=== PATIENT | female | born 1980 | race Caucasian/White ===

== ENCOUNTER 2017-07-15 23:22 | Emergency (ER) | payer MEDICAID ==
[~2017-07-15] VITALS: Ht 165.1 cm; Wt 79.4 kg
[2017-07-15 23:27] VITALS: BP 114/75
--- NOTE | 2017-07-15 23:31 | NUR ---
TO LOBBY ALANNA VSS, A/W BED, DEBI NOTED
--- NOTE | 2017-07-16 00:27 | NUR ---
PT TO ER BED 8
--- NOTE | 2017-07-16 00:30 | NUR ---
PATIENT IS A 36 Y/O FEMALE WHO PRESENTS TO THE ED C/O HAND PAIN. PT STATES THAT SHE FELL DOWN AND HURT HER ARM. PT REPORTS 7/10 ACHING R HAND PAIN THAT DOES NOT RADIATE, NOTED MILD SWELLING. CMS INTACT. PT DENIES CP, SOB, N/V/D. PT AAOX4, RR EVEN/UNLABORED. PT REPOSITIONED FOR COMFORT, BED IN LOWEST POSITION. ER MD DR. GRANADOS NOTIFIED. WILL CONTINUE TO MONITOR.
[2017-07-16] MEDS ORDERED: IBUPROFEN 600 MG TAB PO ONE (00:45)
[2017-07-16 02:47] VITALS: BP 114/75
--- NOTE | 2017-07-16 02:47 | NUR ---
Patient discharged with v/s stable, reduced pain, CMS intact. Written and verbal after care instructions given and explained. Patient alert, oriented and verbalized understanding of instructions. Ambulatory with steady gait. All questions addressed prior to discharge. ID band removed. Patient advised to follow up with PMD. Rx of ibuprofen, norco given. Patient educated on indication of medication including possible reaction and side effects. Opportunity to ask questions provided and answered.
== END 2017-07-16 02:47 | disposition home or self-care (01) ==
LOC: MED 23:22
DX: S62.394A Other fracture of fourth metacarpal bone, right hand, initial encounter for closed fracture (principal); S62.396A Other fracture of fifth metacarpal bone, right hand, initial encounter for closed fracture; W19.XXXA Unspecified fall, initial encounter; Y93.89 Activity, other specified; Y92.89 Other specified places as the place of occurrence of the external cause; Y99.8 Other external cause status
CPT/HCPCS: 73130; 99284

== ENCOUNTER 2019-01-09 18:48 | Emergency (ER) | payer MEDICAID ==
[~2019-01-09] VITALS: Ht 167.6 cm; Wt 81.6 kg
[2019-01-09 18:59] VITALS: BP 119/76
--- NOTE | 2019-01-09 19:02 | NUR ---
C/O NON-RADIATING BURNING/THROBING RT KNEE PAIN X 1.5 WEEKS, PAIN INCREASES W/ BENDING AND WALKING. DENIES TRAUMA OR INJURY. VSS. ER MD TO SEE PT. MEDHX:DENIES RX:DENIES
--- NOTE | 2019-01-09 19:08 | NUR ---
Pt report given to TODD ORNELAS. Transfer of care at this time.
--- NOTE | 2019-01-09 19:10 | NUR ---
REPORT RECEIVED FROM TODD RICE. TRANSFER OF CARE AT THIS TIME.
[2019-01-09] MEDS ORDERED: KETOROLAC 30 MG/ML VIAL IM ONE (20:00)
--- NOTE | 2019-01-09 20:24 | NUR ---
PT STATES RELIEF OF PAIN AT THIS TIME. 0
--- NOTE | 2019-01-09 20:24 | NUR ---
Patient discharged with v/s stable. Written and verbal after care instructions given and explained. Patient alert, oriented and verbalized understanding of instructions. Ambulatory with steady gait WITH CRUTCH ASSISTANCE. All questions addressed prior to discharge. ID band removed. Patient advised to follow up with PMD. Rx TYLENOL AND MOTRIN given. Patient educated on indication of medication including possible reaction and side effects. Opportunity to ask questions provided and answered.
[2019-01-09 20:25] VITALS: BP 119/76
== END 2019-01-09 20:24 | disposition home or self-care (01) ==
LOC: MED 18:48
DX: S83.91XA Sprain of unspecified site of right knee, initial encounter (principal); X50.0XXA Overexertion from strenuous movement or load, initial encounter; Y93.89 Activity, other specified; Y92.89 Other specified places as the place of occurrence of the external cause; Y99.0 Civilian activity done for income or pay
CPT/HCPCS: 29515; 96372; 99283; J1885